=== PATIENT | male | born 1990 | race Caucasian/White ===

== ENCOUNTER 2019-05-22 14:30 | Inpatient (IN) | payer SELFPAY ==
[~2019-05-22] VITALS: Ht 170.2 cm; Wt 51.4 kg
[~2019-05-22 14:30] MED LIST: HYDR-2595
[2019-05-22] MEDS ORDERED: diphenhdrAMINE HCL 50 MG/1 ML VL ONE (14:40)
[2019-05-22] MEDS ORDERED: LORazepam 2MG/ML-1ML VIAL ONE (14:40)
[2019-05-22] MEDS ORDERED: HALOPERIDOL LACTATE 5 MG/ML INJ VIAL ONE (14:41)
[2019-05-22] MEDS ORDERED: diphenhdrAMINE HCL 50 MG/1 ML VL IM ONE ×2 (14:45→20:45)
[2019-05-22] MEDS ORDERED: LORazepam 2MG/ML-1ML VIAL IM ONE ×2 (14:45→20:45)
[2019-05-22] MEDS ORDERED: HALOPERIDOL LACTATE 5 MG/ML INJ VIAL IM ONE ×2 (14:45→20:45)
[2019-05-22 15:11] LABS: Urine WBC None Seen /hpf (0 - 3)
[2019-05-22] MEDS ORDERED: MIDAZOLAM HCL 1MG/1ML-2 ML VIAL IV ONE (15:15)
[2019-05-22] MEDS ORDERED: DIAZEPAM 5 MG/ML 2ML SYRG IV ONE (15:15)
[2019-05-22 15:16] LABS: Basophils # (auto) 0 uL; Basophils % (auto) 0.2 % (0.0-2.0); Eosinophils # (auto) 0 uL; Eosinophils % (auto) 0.2 % (0.0-7.0); Hematocrit 43.3 % (41.0-53.0); Hemoglobin 14.8 g/dL (13.5-17.5); Lymphocytes # (auto) 2.1 uL; Lymphocytes % (auto) 28.5 % (10.0-50.0); Mean Corpuscular Hemoglobin 30.4 pg (28.0-32.0); Mean Corpuscular Hgb Conc. 34.2 g/dL (32.0-36.0); Mean Corpuscular Volume 88.9 fL (80.0-100.0); Monocytes # (auto) 0.5 uL; Monocytes % (auto) 6.4 % (0.0-12.0); Neutrophils # (auto) 4.9 uL; Neutrophils % (auto) 64.7 % (37.0-80.0); Nucleated Red Blood Cells % 0.1 %; Platelet Count (auto) 315 10^3/uL (140-450); Red Blood Cells 4.87 10^6/uL (4.5-5.90); Red Cell Distribution Width 14.8 % (11.8-14.3); White Blood Cell 7.5 10^3/uL (4.4-10.8)
[2019-05-22 15:30] LABS: Urine Bacteria NONE SEEN /hpf (None Seen); Urine Blood 1+ /uL (Negative); Urine Mucus FEW (None Seen); Urine Specific Gravity 1.022 (1.001-1.035)
[2019-05-22 15:35] LABS: Alcohol, Urine < 3.0 mg/dL (0-5); Amphetamine Screen, Urine NEGATIVE (NEGATIVE); Barbiturate Scree,Urine NEGATIVE (NEGATIVE); Benzodiazephine Screen, Urine POSITIVE (NEGATIVE); Cannabinoid Screen, Urine POSITIVE (NEGATIVE); Cocaine Screen, Urine NEGATIVE (NEGATIVE); Opiate Scree,Urine POSITIVE (NEGATIVE); Phencyclidine Screen, Urine NEGATIVE (NEGATIVE)
[2019-05-22 15:37] LABS: Alanine Aminotransferase 18 U/L (16-61); Albumin 4.3 g/dL (3.4-5.0); Anion Gap 9 (5-15); Aspartate Aminotransferase 11 U/L (15-37); Blood Alcohol < 3.0 mg/dL (0-5); Blood Urea Nitrogen 9 mg/dL (7-18); Carbon Dioxide 26 mmol/L (21-32); Chloride 105 mmol/L (98-107); GFR African American 129 mL/min; GFR Non-African American 107 mL/min; Glucose 108 mg/dL (74-106); Potassium 3.4 mmol/L (3.5-5.1); Sodium 140 mmol/L (136-145)
[2019-05-22 15:38] LABS: Salicylate 1.7 mg/dL (2.8-20.0)
[2019-05-22 15:39] LABS: Alkaline Phosphatase 121 U/L (45-117); Total Protein 7.9 g/dL (6.4-8.2)
[2019-05-22 15:45] LABS: Acetaminophen < 2.0 ug/mL (10-30)
[2019-05-22] MEDS ORDERED: LORazepam 2MG/ML-1ML VIAL IV ONE (17:45)
[2019-05-22] MEDS ORDERED: diphenhdrAMINE HCL 50 MG/1 ML VL IV ONE (17:45)
[2019-05-22] MEDS ORDERED: SODIUM CHLORIDE 0.9% 1,000 ML IV ONE ×2 (21:45)
[2019-05-22] MEDS: ACETAMINOPHEN 650 MG RECT SUPP PR PRN (21:48)
[2019-05-22] MEDS ORDERED: SODIUM CHLORIDE 0.9% 1,000 ML IV SCH (22:47)
[2019-05-22] MEDS ORDERED: ACETAMINOPHEN 325 MG TAB PO PRN (23:00)
[2019-05-22] MEDS ORDERED: LORazepam 0.5 MG TAB PO PRN (23:00)
[2019-05-22] MEDS ORDERED: MORPHINE SULFATE 4 MG/ML SYR/VIAL IV PRN (23:00)
[2019-05-22] MEDS ORDERED: DOCUSATE SOD 100 MG CAP PO PRN (23:00)
[2019-05-22] MEDS ORDERED: ONDANSETRON HCL 4 MG/2 ML VIAL IV PRN (23:00)
[2019-05-23] MEDS: ACETAMINOPHEN 650 MG RECT SUPP PR PRN (04:00)
[2019-05-23 07:38] LABS: Basophils # (auto) 0.1 uL; Basophils % (auto) 0.6 % (0.0-2.0); Eosinophils # (auto) 0 uL; Hematocrit 37.4 % (41.0-53.0); Hemoglobin 13.2 g/dL (13.5-17.5); Lymphocytes # (auto) 2.4 uL; Lymphocytes % (auto) 21.3 % (10.0-50.0); Mean Corpuscular Hemoglobin 30.5 pg (28.0-32.0); Mean Corpuscular Hgb Conc. 35.5 g/dL (32.0-36.0); Mean Corpuscular Volume 86.1 fL (80.0-100.0); Monocytes # (auto) 0.8 uL; Neutrophils # (auto) 8.1 uL; Neutrophils % (auto) 71.1 % (37.0-80.0); Platelet Count (auto) 229 10^3/uL (140-450); Red Blood Cells 4.34 10^6/uL (4.5-5.90); White Blood Cell 11.4 10^3/uL (4.4-10.8)
[2019-05-23 08:01] LABS: BUN/Creatinine Ratio 13.6; Calcium 8.3 mg/dL (8.5-10.1); Potassium 3.2 mmol/L (3.5-5.1)
[2019-05-23] MEDS ORDERED: LORazepam 2MG/ML-1ML VIAL ONE (08:11)
[2019-05-23] MEDS ORDERED: HALOPERIDOL LACTATE 5 MG/ML INJ VIAL IM PRN (08:15)
[2019-05-23] MEDS ORDERED: POTASSIUM CHLORIDE 40 MEQ, LIDOCAINE 1% (LOCAL ANESTH.) 4 ML in SODIUM CHL 0.9% 100 ML IV ONE (08:15)
[2019-05-23] MEDS ORDERED: MORPHINE SULF INJ 2 MG/ML SYRINGE 1ML IV PRN (08:45)
[2019-05-23] MEDS ORDERED: LORazepam 2MG/ML-1ML VIAL IV ONE (09:15)
[2019-05-23] MEDS: FOLIC ACID 1 MG, MULTIPLE VITAMIN 10 ML, MAGNESIUM SULF SDV 50% 8 MEQ, THIAMINE INJ 100... INJ SCH ×5 (13:30)
[2019-05-23] MEDS: LORazepam 2MG/ML-1ML VIAL IV PRN ×2 (15:33→19:21)
--- NOTE | 2019-05-24 07:36 | NUR ---
RECEIVED REPORT FROM ARLENE LO.
--- NOTE | 2019-05-24 08:00 | NUR ---
Telemetry admit from ER CAMMIEDARIELA admitted to Telemetry unit after SBAR received. Patient oriented to LINDA SIMMONS, primary RN, unit, room, bed, and unit policies regarding patient care and visiting hours. Patient now on continuous telemetry monitoring, tele box # [id number] and telemetry reading on arrival to unit is SINUS BRADYCARDIA. Patient weighed by bedscale and encouraged to call if they need something. All questions and concerns addressed, patient verbalized understanding.
[2019-05-24 08:10] VITALS: BP 113/90
[2019-05-24 08:42] VITALS: BP 113/90
[2019-05-24] MEDS: FOLIC ACID 1 MG, MULTIPLE VITAMIN 10 ML, MAGNESIUM SULF SDV 50% 8 MEQ, THIAMINE INJ 100... INJ SCH ×5 (12:00)
[2019-05-24 13:00] VITALS: BP 135/105
--- NOTE | 2019-05-24 13:31 | NUR ---
TELEPSYCH CONSULT PLACED WITH SOC.
--- NOTE | 2019-05-24 13:45 | NUR ---
TELEPSYCH CONSULT OCCURRING.
[2019-05-24] MEDS: LORazepam 2MG/ML-1ML VIAL IV PRN (15:37)
[2019-05-24 17:00] VITALS: BP 124/82
--- NOTE | 2019-05-24 19:40 | NUR ---
Opening Shift Note Assumed care of patient, awake and alert. No S/S of distress/SOB. Fall and safety precautions in place. Call light within reach. Instructed on POC and to call for assist PRN, will continue to monitor for changes Q1hr and PRN.
[2019-05-24 22:03] VITALS: BP 135/75
[2019-05-25] MEDS: LORazepam 2MG/ML-1ML VIAL IV PRN (03:06)
[2019-05-25 05:26] VITALS: BP 112/75
--- NOTE | 2019-05-25 07:30 | NUR ---
Opening Shift Note RECEIVED REPORT FROM NOC RN. Assumed care of patient, awake and alert. No S/S of distress/SOB or pain. BED IN LOWEST, LOCKED POSITION WITH SIDERAILS UP x2 AND CALL LIGHT WITHIN REACH. Instructed on POC and to call for assist PRN, will continue to monitor for changes Q1hr and PRN.
--- NOTE | 2019-05-25 08:10 | NUR ---
IV insertion IV access obtained, via clean sterile technique by inserting 22 gauge catheter at RIGHT FOREARM after 2 attempt(s). IV secured properly. No trauma to site. Patient tolerated well. Addendum: 05/25/19 at 0832 by LINDA SIMMONS RN RN CHARTED ON INCORRECT PATIENT.
[2019-05-25 08:37] VITALS: BP 112/58
--- NOTE | 2019-05-25 09:21 | NUR ---
DR. Valentina TRUJILLO AT BEDSIDE.
[2019-05-25 09:56] VITALS: BP 112/58
--- NOTE | 2019-05-25 11:03 | NUR ---
DR. Valentina TRUJILLO AT BEDSIDE SPEAKING WITH PATIENT AND FAMILY. ALL QUESTIONS ANSWERED.
--- NOTE | 2019-05-25 15:42 | NUR ---
Assessment Per nurses communication, pt was d/c'd 10 minutes prior to SW visit. Pt was cleared by telepsych and went home. Addendum: 05/25/19 at 1544 by LORENA ADEN SS Amended: Links added.
--- NOTE | 2019-05-25 16:39 | NUR ---
Received referral for certified social workers in health care due to the pt does not have insurance. A referral was given to Sanjay. Sanjay was able to get pt a secure application for [facility].
--- NOTE | 2019-05-26 13:36 | NUR ---
Social Service consult regarding Advance Directives. Provided pt with information on Advance Directives and Durable Power of Cable Rigger Form. Pt verbalized understanding and accepted the information. Will contact Staffing Operations Manager for any further concerns or issues.
== END 2019-05-25 12:00 | disposition home or self-care (01) | DRG 93 ==
LOC: ER 14:30 → OVERFLOW 14:31 → TELE-CENTR 05-24 08:20
PROVIDERS: ADMIT Hospitalist; ATTEND Family Medicine
DX: G92 Toxic encephalopathy (principal); F17.210 Nicotine dependence, cigarettes, uncomplicated; E87.6 Hypokalemia; E86.0 Dehydration; F12.10 Cannabis abuse, uncomplicated; F15.10 Other stimulant abuse, uncomplicated; F11.10 Opioid abuse, uncomplicated
CPT/HCPCS: 36415; 70450; 80048; 80053; 80307; 80320; 80329; 81001; 82962; 85025; 87040; 93005; G0378; J2001; J2250; J2405